=== PATIENT | female | born 1990 | race Caucasian/White ===

== ENCOUNTER 2025-08-07 17:42 | Emergency (ER) | payer MEDICAID ==
[~2025-08-07] VITALS: Ht 149.9 cm; Wt 86.4 kg
[2025-08-07 17:54] VITALS: TEMP 98.2
--- NOTE | 2025-08-07 18:25 | RADIOLOGY REPORT ---
CLINICAL HISTORY: HAND PAIN,RIGHT ECHNIQUE: 3 views of the left hand were obtained. COMPARISON: DI WRIST, COMPLETE (3VW MIN) on DOS: 08/07/25 FINDINGS: No acute fracture or dislocation is seen. No soft tissue abnormality is evident. There are no significant degenerative changes. IMPRESSION: NO ACUTE RADIOGRAPHIC ABNORMALITY OF THE LEFT HAND.
--- NOTE | 2025-08-07 18:25 | RADIOLOGY REPORT ---
CLINICAL HISTORY: WRIST PAIN, RIGHT TECHNIQUE: 3 views of the right wrist were obtained. COMPARISON: DI HAND, COMPLETE (3VW MIN) on DOS: 08/07/25 FINDINGS: No acute fracture or dislocation is seen. No soft tissue abnormality is evident. There are no significant degenerative changes. IMPRESSION: NO ACUTE RADIOGRAPHIC ABNORMALITY OF THE RIGHT WRIST.
--- NOTE | 2025-08-07 18:26 | RADIOLOGY REPORT ---
CLINICAL HISTORY: ARM PAIN,RIGHT TECHNIQUE: 2 views of the right forearm were obtained. COMPARISON: DI HAND, COMPLETE (3VW MIN) on DOS: 08/07/25, DI WRIST, COMPLETE (3VW MIN) on DOS: 08/07/25 FINDINGS: No acute fracture or dislocation is seen. There are no significant degenerative changes. No significant soft tissue abnormality is seen. IMPRESSION: NO ACUTE RADIOGRAPHIC ABNORMALITY OF THE RIGHT FOREARM.
--- NOTE | 2025-08-07 19:19 | Physician Documentation ---
History of Present Illness ~ Chief Complaint: Laceration Stated Complaint: HAND LAC Time Seen by MD: 21:24 HPI Patient is a 34-year-old female that presents to the emergency department for evaluation of a laceration to the right forearm after striking a window in having her hand go through the window. Patient reports that she may have some retained glass in the lacerations but was unable to clean it out prior to coming to the emergency department. Patient denies taking blood thinners patient denies any other significant past medical history currently patient denies taking any Tylenol or ibuprofen prior to arrival in the emergency department. Medication Reconciliation Allergies: Coded Allergies: No Known Allergies (Unverified , 08/07/25) Review of Systems ROS As stated above in the HPI, otherwise all systems are reviewed and negative. Physical Exam Vital Signs: Temperature: 98.2, Source: Oral, Heart Rate: 95, Respiratory Rate: 18, BP: 133/81, Pulse Oximetry: 98, Weight: 86.400 Physical Exam VITALS: Reviewed and as above. GENERAL: Alert, no apparent distress. HEENT: Normocephalic, atraumatic, PERRL, EOMI, dry mucosa, no erythema RESPIRATORY: Lungs clear, normal breath sounds, no respiratory distress. CHEST: No accessory muscle use, no retractions CV: Regular rate, rhythm, no edema, no murmur, No: JVD GI: Soft, non-tender, bowels sounds present, no rebound, guarding, or rigidity BACK: No CVA tenderness, or swelling MUSCULOSKELETAL No deformities, no edema SKIN: Warm and dry,. Abrasions noted to the anterior and posterior of the right forearm, abrasions noted to the anterior and posterior portion of the right hand and forearm. NEURO: Oriented x4, No motor or sensory deficit PSYCH: Normal mood and affect, no agitation Procedures Laceration/Wound Repair Laceration : Location: 2.5 Anesthesia: Lidocaine Volume Anesthetic (mls): 6 Prep: irrigated by nurse Irrigated w/ Saline (mls): 500 Debrided: minimal Undermining: none Margins: revised Foreign Body: not identified Repaired: skin, subcutaneous Wound Repaired With: sutures Suture Size/Type: 4-0, vicryl Number of Superficial Sutures: 10 Layer Closure?: No Dressing Applied: gauze, non-adherent Splint Applied?: No Tolerated Procedure Well?: yes, no complications Progress Results/Orders Results/Orders Orders - ASHLEY JEFFERSON RELAY DISPATCHER General Nursing Order (08/07/25 22:30) Completed Orders - ASHLEY JEFFERSON RELAY DISPATCHER Lidocaine 1% 30ml Vial (Xylocaine 1% Via (08/07/25 22:30) Vital Signs 08/07/25 08/07/25 08/07/25 08/07/25 17:54 22:08 22:13 23:36 Temp 98.2 Pulse 95 72 82 Resp 18 16 16 16 B/P (MAP) 133/81 126/88 (101) 112/81 (91) Pulse Ox 98 99 94 O2 Flow Rate 0 0 Medical Decision Making Findings Wound inspected under direct bright light with good visualization. Area with linear laceration across soft tissue through adipose without exposure of muscle belly or tendon. No overt foreign body. Area hemostatic. Neurovascular exam congruent with above. Area extensively irrigated with sterile normal saline under pressure. Laceration repaired in simple fashion as below (please see procedure note for further details). Patient tolerated procedure well and neurovascular exam intact and unchanged post repair with intact distal pulses and cap refill. Cautious return precautions discussed w/ full understanding. Wound care discussed. Prompt follow up with primary care physician discussed and return for suture removal in 10 days. Antibiotics prescribed. Patient will follow up with her primary care. Return to the emergency department with any worsening or recurrent symptoms or any additional concerning symptoms that we discussed here today i.e. increased redness increased swelling purulent drainage fever chills or any other symptoms. Differential Dx:Considerations: Include: Abrasion, Avulsion, Contusion, Laceration, Fracture, Hematoma, Neurovascular injury, Retained foreign body, Other Departure Disposition: 01 HOME / SELF CARE / HOMELESS Impression: Primary Impression: Laceration Condition: Stable Discharge Instructions: Laceration Care, Adult, [id number] Additional Instructions: Wound inspected under direct bright light with good visualization. Area with linear laceration across soft tissue through adipose without exposure of muscle belly or tendon. No overt foreign body. Area hemostatic. Neurovascular exam congruent with above. Area extensively irrigated with sterile normal saline under pressure. Laceration repaired in simple fashion as below (please see procedure note for further details). Patient tolerated procedure well and neurovascular exam intact and unchanged post repair with intact distal pulses and cap refill. Cautious return precautions discussed w/ full understanding. Wound care discussed. Prompt follow up with primary care physician discussed and return for suture removal in 10 days. Antibiotics prescribed. Patient will follow up with her primary care. Return to the emergency department with any worsening or recurrent symptoms or any additional concerning symptoms that we discussed here today i.e. increased redness increased swelling purulent drainage fever chills or any other symptoms. Referrals: NO PRIMARY CARE PROVIDER (PCP) Prescriptions Cephalexin*Monohydrate* (Keflex*) 500 Mg Capsule 1 CAP PO QID for 7 Days, #28 CAP Prov: ASHLEY JEFFERSON 08/08/25 Education Educated: Patient Educated regarding: diagnosis, treatment, need for follow up Signature Scribe Signature: A Attestation: Scribed for Ashley Jefferson by MEHREEN Browning . 08/08/25 00:13 ASHLEY JEFFERSON Aug 07, 2025 19:19
[2025-08-07] MEDS: LIDOcaine 1% 30ml preserv. free vial IJ STA (23:08)
[2025-08-08] MEDS ORDERED: CEPH-585 PO (00:11)
[2025-08-08] MEDS ORDERED: tetanus & diphtheria toxoid (Td) vaccine 0.5ml SYRINGE IMVAC ONE (00:20)
[2025-08-08] MEDS: TETanus/Pertussis (Acell)/Diphther VAC/PF (Tdap-Adult) 0.5ml syringe IMVAC ONE (00:43)
[2025-08-08 00:54] VITALS: BP 105/72; PULSE 71; RESP 16; O2SAT 96
== END 2025-08-08 00:56 | disposition home or self-care (01) ==
LOC: ER 17:43
DX: S51.811A Laceration without foreign body of right forearm, initial encounter (principal); W22.09XA Striking against other stationary object, initial encounter; Y93.89 Activity, other specified; Y92.89 Other specified places as the place of occurrence of the external cause; Y99.8 Other external cause status
CPT/HCPCS: 12031; 73090; 73110; 73130; 90471; 90715; 99284; A6258; A6402; A6446; A6449